=== PATIENT | male | born 1995 | race Caucasian/White ===

== ENCOUNTER 2020-09-13 23:44 | Emergency (ER) | payer SELFPAY ==
[~2020-09-13] VITALS: Ht 175.3 cm; Wt 83.9 kg
--- NOTE | 2020-09-13 23:44 | NUR ---
PT BIB [facility] PREBOOK. TAKEN TO CHAIR D
[2020-09-13 23:46] VITALS: BP 138/67
--- NOTE | 2020-09-13 23:49 | NUR ---
PT AMBULATED TO RESTROOM W/ STEADY GAIT.
--- NOTE | 2020-09-13 23:57 | NUR ---
Dr. Newman examining patient.
--- NOTE | 2020-09-14 00:29 | NUR ---
PATIENT BIB [facility]. PATIENT EXAMINED BY DR. ARMSTRONG. PATIENT MEDICALLY CLEARED AND RELEASED IN CUSTODY IN STABLE CONDITION. ORIGINAL PRE-BOOK FORM GIVEN TO OFFICER STEVEN, #[id number].
== END 2020-09-14 00:29 ==
LOC: MED 23:44
DX: Z02.89 Encounter for other administrative examinations (principal)
CPT/HCPCS: 71045; 99283